=== PATIENT | female | born 1955 ===

== ENCOUNTER 2017-11-24 13:27 | Emergency (ER) | payer BC ==
[2017-11-24 13:27] VITALS: BMI 28.3
[2017-11-24 14:07] VITALS: BP 123/81; PULSE 100; RESP 20; TEMP 98.8; O2SAT 98
[2017-11-24] MEDS ORDERED: Albuterol-Ipratrop 3 mg / 0.5 (3 ml) UD INH STA (14:26)
--- NOTE | 2017-11-24 14:46 | ED PDOC ---
HPI: General Adult Time Seen by Provider: 11/24/17 14:23 Chief Complaint (Nursing): Flu-like Symptoms Chief Complaint (Provider): Flu-like Symptoms History Per: Patient Onset/Duration Of Symptoms: Days (x 6) Current Symptoms Are (Timing): Still Present Recently: Treated By A Physician Additional Complaint(s): Ms. Sandra is a 62 year old female who presents to the emergency department complaining of fever, cough, congestion since Wednesday. Patient states she was seen by her doctor on Wednesday and was diagnosed with flu. Patient was prescribed Zithromax, Promethazine and Tamiflu. Patient reports symptoms continue. Patient denies taking anything for lungs. No asthma or lung problems. Patient reports fever at 102.3 PMD: Bradford Abarca Past Medical History Reviewed: Historical Data, Nursing Documentation, Vital Signs Vital Signs: Last Vital Signs Temp 98.8 F 11/24/17 14:04 Pulse 100 H 11/24/17 14:04 Resp 20 11/24/17 14:04 BP 123/81 11/24/17 14:04 Pulse Ox 98 11/24/17 15:19 - Medical History PMH: No Chronic Diseases Denies: Chronic Kidney Disease - Surgical History Surgical History: Appendectomy, (x 3) - Family History Family History: States: Unknown Family Hx - Home Medications Home Medications: Ambulatory Orders Medication Instructions Recorded Multivitamin 1 tab PO DAILY 02/25/15 Albuterol HFA [Ventolin HFA 90 1 puff IH ASDIR #1 unit 07/17/15 mcg/actuation (8 g)] Levofloxacin [Levaquin] 500 mg PO DAILY #10 tab 07/17/15 Methylprednisolone [Medrol Dose 4 mg PO ASDIR #21 mg 07/17/15 Pack (21 tabs)] guaiFENesin/Codeine [Robitussin 5 ml PO Q4H PRN #240 ml 07/17/15 w/Codeine] Albuterol 0.083% [Albuterol 0.083% 2.5 mg IH Q8 PRN #100 neb 11/24/17 Inhal Gena (2.5 mg/3 ml) UD] Levofloxacin [Levaquin] 500 mg PO DAILY #7 tablet 11/24/17 Mask, Face [Nebulizer Aerosol Mask 1 dev XX PRN PRN #1 dev 11/24/17 Adult] Nebulizer [Aeroeclipse II] 1 each MC Q8 PRN #1 each 11/24/17 Promethazine/Codeine 5 ml PO Q12 PRN #100 ml 11/24/17 [Codeine/Promethazine 10 MG/5 Ml-6.25 MG/5 Ml] - Allergies Allergies/Adverse Reactions: Allergies Allergy/AdvReac Type Severity Reaction Status Date / Time No Known Allergies Allergy Verified 11/24/17 14:03 Review of Systems ROS Statement: Except As Marked, All Systems Reviewed And Found Negative Physical Exam - Reviewed Nursing Documentation Reviewed: Yes Vital Signs Reviewed: Yes - Physical Exam Appears: Positive for: Non-toxic, In Acute Distress Head Exam: Positive for: ATRAUMATIC, NORMAL INSPECTION, NORMOCEPHALIC Skin: Positive for: Normal Color, Warm, Dry Eye Exam: Positive for: Normal appearance ENT: Positive for: Nasal Congestion Neck: Positive for: Normal Cardiovascular/Chest: Positive for: Regular Rate, Rhythm Respiratory: Positive for: Rhonchi, Other ((+): Lungs clear. Bronchospasm noted. Coughing with inspiratory effort) Gastrointestinal/Abdominal: Positive for: Normal Exam, Bowel Sounds, Soft Extremity: Positive for: Normal ROM. Negative for: Deformity Neurologic/Psych: Positive for: Alert, Oriented (x 3) - ECG O2 Sat by Pulse Oximetry: 98 (RA) Pulse Ox Interpretation: Normal Medical Decision Making Medical Decision Making: Time: 14:26 Plan: - Chest X-Ray - Duoneb 3 mg/0.5 mg (3 ml) UD - Peak Flow Pre/Post Treatment Time: 15:14 Chest X-Ray FINDINGS: LUNGS: No active pulmonary disease. The slight asymmetrical density projecting over the medial right upper lung zone is believe similar to a 2009 study - asymmetrical coaster cartilaginous junctional calcification is the etiology. No interval infiltrate suspect PLEURA: No significant pleural effusion identified. No pneumothorax apparent. CARDIOVASCULAR: Normal. OSSEOUS STRUCTURES: Thoracic spondylosis and bilateral shoulder arthrosis VISUALIZED UPPER ABDOMEN: Right upper quadrant cholecystectomy clips noted OTHER FINDINGS: None. IMPRESSION: No active disease. No interval infiltrate Upon provider evaluation patient is medically stable, and requires no further treatment in the ED at this time. Patient will be discharged with Rx for Aeroeclipse II and Promethazine/Codeine. Counseling was provided and all questions were answered regarding diagnosis and need for follow up with PCP. There is agreement to discharge plan. Return if symptoms persist or worsen. Scribe Attestation: Documented by Brian Yañez, acting as a scribe for Lorelei Casas PA-C. Provider Scribe Attestation: All medical record entries made by the Scribe were at my direction and personally dictated by me. I have reviewed the chart and agree that the record accurately reflects my personal performance of the history, physical exam, medical decision making, and the department course for this patient. I have also personally directed, reviewed, and agree with the discharge instructions and disposition. Disposition - Clinical Impression Clinical Impression: Influenza, Pulmonary infiltrate - Patient ED Disposition Is Patient to be Admitted: No - Disposition Disposition Time: 15:16 Condition: FAIR Prescriptions: Albuterol 0.083% [Albuterol 0.083% Inhal Gena (2.5 mg/3 ml) UD] 2.5 mg IH Q8 PRN #100 neb PRN Reason: Cough Levofloxacin [Levaquin] 500 mg PO DAILY #7 tablet Mask, Face [Nebulizer Aerosol Mask Adult] 1 dev XX PRN PRN #1 dev PRN Reason: Cough Nebulizer [Aeroeclipse II] 1 each MC Q8 PRN #1 each PRN Reason: Cough Promethazine/Codeine [Codeine/Promethazine 10 MG/5 Ml-6.25 MG/5 Ml] 5 ml PO Q12 PRN #100 ml PRN Reason: Cough Instructions: Community Acquired Pneumonia (DC) Forms: [employer] (Mauritian), [facility] ED School/Work Excuse Print Language: PASHTO
--- NOTE | 2017-11-24 15:15 | RAD ---
HISTORY: COUGH COMPARISON: 07/17/2015 TECHNIQUE: Chest PA and lateral FINDINGS: LUNGS: No active pulmonary disease. The slight asymmetrical density projecting over the medial right upper lung zone is believe similar to a 2009 study -asymmetrical coaster cartilaginous junctional calcification is the etiology. No interval infiltrate suspect PLEURA: No significant pleural effusion identified. No pneumothorax apparent. CARDIOVASCULAR: Normal. OSSEOUS STRUCTURES: Thoracic spondylosis and bilateral shoulder arthrosis VISUALIZED UPPER ABDOMEN: Right upper quadrant cholecystectomy clips noted OTHER FINDINGS: None. IMPRESSION: No active disease. No interval infiltrate
== END 2017-11-24 16:48 | disposition home or self-care (01) ==
LOC: H.ER 13:27
DX: J11.1 Influenza due to unidentified influenza virus with other respiratory manifestations (principal)